=== PATIENT | male | born 1945 | race Caucasian/White ===

== ENCOUNTER 2017-12-26 05:46 | Day surgery (SDC) | payer MEDICARE, OTHER ==
[~2017-12-26] VITALS: Ht 172.7 cm; Wt 92.5 kg
[~2017-12-26 05:46] MED LIST: ASPI81CH PO; ATOR80 PO; CLOP75 PO; EZET10-40 PO; GABA300 PO; HYDACE5 PO; IMDUR PO; LEVSOD50 PO; LISI20 PO; METF500C PO; METO50ER PO; NITR.4SL SL; OXYACE5T PO; PROM25 PO; RXONDA4ODT MM
== END 2017-12-26 23:51 | disposition home or self-care (01) ==
LOC: ORSCMMR 05:46
PROVIDERS: Surgery
PROC: 0YU50JZ Supplement Right Inguinal Region with Synthetic Substitute, Open Approach (ICD-10-PCS; principal; 2017-12-26 07:30)
DX: K40.90 Unilateral inguinal hernia, without obstruction or gangrene, not specified as recurrent (principal); E11.9 Type 2 diabetes mellitus without complications; I10 Essential (primary) hypertension; E03.9 Hypothyroidism, unspecified; I25.10 Atherosclerotic heart disease of native coronary artery without angina pectoris; Z87.891 Personal history of nicotine dependence; Z79.899 Other long term (current) drug therapy; Z79.82 Long term (current) use of aspirin; Z79.84 Long term (current) use of oral hypoglycemic drugs
CPT/HCPCS: 82947; C1781; J0690; J1100; J1885; J2250; J2405; J3010; J7120

== ENCOUNTER 2019-04-21 09:21 | Day surgery (SDC) | payer MEDICARE, OTHER ==
[~2019-04-21] VITALS: Ht 172.7 cm; Wt 91.9 kg
--- NOTE | 2019-04-21 12:06 | NUR ---
04/21/19 1206 Belinda Turk PATIENT TO PACU ON [place]. AWAKE AND LOOKING AROUND. REPORT RECEIVED FROM DR HERNANDEZ AND [facility]. PATIENT STABLE, STATES NO PAIN OR NAUSEA. PATIENT ANSWERS QUESTIONS APPROPRIATELY.
--- NOTE | 2019-04-21 12:15 | NUR ---
04/21/19 1215 Belinda Turk PATIENT ABLE TO TRANSFER TO RECLINER WITH MINIMAL HELP. WHEN ASKED ABOUT PAIN OR NAUSEA HE DENIES EITHER ONE. PATIENT STABLE, DRINKING FLUIDS AND HAS NO COMPLAINTS/NEEDS AT THIS TIME
== END 2019-04-21 12:40 | disposition home or self-care (01) ==
LOC: ORSCSDS 09:21
PROVIDERS: Surgery
PROC: 0JBF0ZZ Excision of Left Upper Arm Subcutaneous Tissue and Fascia, Open Approach (ICD-10-PCS; principal; 2019-04-21 11:00)
DX: L72.0 Epidermal cyst (principal); E78.00 Pure hypercholesterolemia, unspecified; E03.9 Hypothyroidism, unspecified; E11.22 Type 2 diabetes mellitus with diabetic chronic kidney disease; I12.9 Hypertensive chronic kidney disease with stage 1 through stage 4 chronic kidney disease, or unspecified chronic kidney disease; N18.3 Chronic kidney disease, stage 3 (moderate); Z79.82 Long term (current) use of aspirin; Z79.899 Other long term (current) drug therapy; Z87.891 Personal history of nicotine dependence
CPT/HCPCS: 82947; 88304; J1100; J2001; J2405; J2704; J3010; J7120